=== PATIENT | male | born 1975 | race Hispanic/Latino ===

== ENCOUNTER 2020-12-21 14:29 | Emergency (ER) | payer OTHER ==
[~2020-12-21] VITALS: Ht 177.8 cm; Wt 99.8 kg
[2020-12-21 15:38] VITALS: BP 144/81
[2020-12-21] MEDS ORDERED: IPRATROPIUM/ALBUTEROL SULFATE 3 ML SOLUTION IH ONE ×2 (15:45→16:50)
[2020-12-21] MEDS ORDERED: APAP-CODEINE 300/30MG TAB PO ONE (15:45)
[2020-12-21] MEDS ORDERED: 0.9%NACL 1000ML 1,000 ML IV ONE ×2 (15:45→16:50)
[2020-12-21 16:30] LABS: BASOPHILS % (AUTO) 0.6 % (0.0-5.0); EOSINOPHILS % (AUTO) 3.3 % (0.0-8.0); HEMATOCRIT 44.7 % (42-54); LYMPHOCYTES % (AUTO) 19.4 % (21.0-51.0); MEAN CORPUSCULAR HEMOGLOBIN 31.1 pg (27.0-33.0); MEAN CORPUSCULAR HGB CONC 34.9 g/dL (32.0-36.0); NEUTROPHILS % (AUTO) 56.5 % (40.0-77.0); PLATELET COUNT (AUTO) 214 K/uL (130-400); RED BLOOD CELL COUNT(AUTO) 5.02 MIL/uL (4.50-6.20); RED CELL DISTRIBUTION WIDTH 11.9 % (11.0-15.5); WHITE BLOOD COUNT (AUTO) 8.7 K/uL (4.8-10.8)
[2020-12-21 16:44] LABS: CREATININE 1.2 mg/dL (0.5-1.5); POTASSIUM 3.7 mmol/L (3.5-5.1)
[2020-12-21 16:48] LABS: ALBUMIN 3.7 g/dL (3.5-5.0); BILIRUBIN,TOTAL 0.5 mg/dL (0.2-1.0); TOTAL PROTEIN, SERUM 8.9 g/dL (6.0-8.3)
[2020-12-21] MEDS: APAP-CODEINE 300/30MG TAB ONE ×2 (16:59→17:57)
[2020-12-21 17:06] LABS: B-TYPE NATRIURETIC PEPTIDE < 5 pg/mL (0-100)
[2020-12-21] MEDS ORDERED: CLINDAMYCIN IVPB 600MG/50ML 50 ML IV SCH (18:00)
[2020-12-21 18:01] VITALS: BP 138/76
[2020-12-21] MEDS ORDERED: AMOX-429 PO (18:17)
[2020-12-21] MEDS ORDERED: ALBU1.252 IH (18:17)
[2020-12-21] MEDS ORDERED: DIPH1POW20 PO (18:17)
== END 2020-12-21 18:42 | disposition home or self-care (01) ==
LOC: EDH 14:56
DX: J40 Bronchitis, not specified as acute or chronic (principal); J32.1 Chronic frontal sinusitis; Z20.822 Contact with and (suspected) exposure to COVID-19
CPT/HCPCS: 36415; 71045; 80053; 83880; 84484; 85025; 86140; 87635; 87804 ×2; 87880; 94640; 96361; 96365; 99284; C9803; J3490; J7030